=== PATIENT | female | born 1945 | race Caucasian/White ===

== ENCOUNTER 2020-11-11 08:41 | Outpatient (RCR) | payer MEDICARE, SELFPAY | END 2020-11-11 23:59 | LOC: IMMUN 08:41 | PROVIDERS: PCP Family Medicine; Visit Provider Family Medicine | DX: Z23 Encounter for immunization (principal) | CPT/HCPCS: 0011A; 0012A ==

== ENCOUNTER 2020-11-15 19:28 | Inpatient (IN) | payer MEDICARE, SELFPAY ==
[2020-11-15 19:29] VITALS: BP 163/88; PULSE 120; RESP 18; TEMP 36.1; O2SAT 94; BMI 33.6
--- NOTE | 2020-11-15 19:41 | EKG12_ITS ---
Test Reason : DYSRYTHMIA Blood Pressure : / mmHG Vent. Rate : 098 BPM Atrial Rate : 098 BPM P-R Int : 140 ms QRS Dur : 060 ms QT Int : 334 ms P-R-T Axes : 062 035 056 degrees QTc Int : 426 ms Normal sinus rhythm Possible Left atrial enlargement Borderline ECG Confirmed by VIDAL MAX, SU ([id number]), continuity editor JENNY AUGUSTINE ([id number]) on 11/17/2020 10:37:20 AM Referred By: SHILPI Confirmed By:SU DRAKE MD
--- NOTE | 2020-11-15 19:42 | ED.VISSUMM ---
- ER Visit Summary Date of Service: 11/15/20 Chief Complaint: Vomiting History of Present Illness: The patient is a 75 F presenting with nausea, vomiting. Patient states this started 2 days ago. She states she is unable to keep fluids or medications down. She went to urgent care yesterday and was given Zofran. She denies diarrhea. She denies abdominal pain, chest pain, shortness of breath. Denies fever. She had Moderna Covid shot on Monday. This was her first Covid shot. Denies sick contacts. Physical Examination: Vitals are stable. Patient is afebrile. Alert no acute distress. HEENT exam dry mucous membranes Neck is supple. Lungs are clear and equal bilaterally. Heart is regular tachycardic Abdomen is soft nontender nondistended. No guarding or rebound Extremities are unremarkable. Skin is warm and dry. No focal neurologic deficit. Remainder of exam is unremarkable. Emergency Department Course and Treatment: Patient was given IV fluids, Zofran. EKG is sinus rhythm rate of 98, similar to previous. CBC shows white count 14.5. Chemistries show sodium 123, glucose 134, BUN 39, creatinine 2.67. On review of old records from [facility], her previous creatinine was 0.February. Troponin is negative. Lipase is normal. On repeat exam she continues to have no abdominal tenderness. She continues to have nausea and vomiting in the emergency department. Will discuss with hospitalist for admission. Disposition: Admission Impression: Vomiting, JORDYN This note was generated with [employer] dictation software. It may contain incorrect words, spelling, and punctuation that were not noted in review of the chart prior to signing ED Disposition - Plan for ED Patient:
[2020-11-15] MEDS: Ondansetron 4 MG/2 ML Vial IV (19:49)
[2020-11-15] MEDS: 0.9% Normal Saline 1,000 ML 1000 ML IV (19:49)
[2020-11-15 20:02] LABS: Absolute Lymphocyte Count 1.93 X10^3/uL (0.83-4.51); Absolute Neutrophil Count 11.8 X10^3/uL (2.0-7.7); Basophil# 0.02 X10^3/uL; Basophil% 0.1 % (0-1); Eosinophil# 0.02 X10^3/uL; Eosinophils% 0.1 % (0-5); Hematocrit 45.9 % (37-47); Hemoglobin 15.8 g/dL (12.0-15.0); Lymphocyte # 1.93 X10^3/ul (4.0); Lymphocyte % 13.3 % (19-41); Mean Corp Hgb Conc 34.4 g/dL (32-36); Mean Corpuscular Hgb 31.3 pg (27.0-32.0); Mean Corpuscular Volume 90.9 fL (81-99); Mean Platelet Vol. 8.8 fl (6.2-12.0); Monocyte# 0.67 X10^3/uL; Monocyte% 4.6 % (0-10); NRBC Flagged by Analyzer 0 % (0-5); Neutrophil # 11.81 X10^3/uL (2.7-7.7); Neutrophil % 81.5 % (47-70); Platelet Count 400 K/mm3 (150-450); RBC Distribution Width CV 13.2 % (11.6-14.6); RBC Distribution Width SD 43.6 fl (35.1-43.9); Red Blood Count 5.05 M/mm3 (4.2-5.4); White Blood Count 14.5 K/mm3 (4.4-11.0)
[2020-11-15 20:17] LABS: ALB/GLOB Ratio 0.9 RATIO (0.9-2.4); AST(SGOT) 14 U/L (15-37); Alanine Aminotransfer ALT/SGPT 22 U/L (13-56); Albumin, Serum 3.9 g/dL (3.2-5.0); Alkaline Phosphatase 81 U/L (45-117); Anion Gap 15 (5-15); BUN 39 mg/dL (7-18); BUN/Creat Ratio 14.6 RATIO (10-20); Chloride 79 mmol/L (98-107); Creatinine, Serum 2.67 mg/dL (0.55-1.02); EST Glomerular Filtration Rate 18 mL/min (>60); Est Glom Filt Rate - Afr Amer 22 mL/min (>60); Estimated Creatinine Clearance 17.16 ml/min; Globulin 4.2 g/dL (2.2-4.2); Glucose 154 mg/dL (74-106); Lipase 136 U/L (73-393); Potassium 4.1 mmol/L (3.5-5.1); Protein, Total 8.1 g/dL (6.4-8.2); Sodium Level 123 mmol/L (136-145)
--- NOTE | 2020-11-15 20:41 | PCM.HP.STD ---
Problem List (1) Intractable nausea and vomiting Status: Acute (2) JORDYN (acute kidney injury) Status: Acute (3) Hyponatremia Status: Acute (4) HLD (hyperlipidemia) Status: Chronic Qualifiers: Hyperlipidemia type: unspecified Qualified Code(s): E78.5 - Hyperlipidemia, unspecified (5) Essential hypertension Status: Chronic (6) Type II diabetes mellitus Status: Chronic Qualifiers: Diabetes mellitus rn long term care insulin use: without assisted use Diabetes mellitus complication status: with other specified complication Qualified Code(s): E11.69 - Type 2 diabetes mellitus with other specified complication History of Present Illness Date of Admission: 11/15/20 Chief Complaint: Nausea, emesis, recent Moderna The patient is a 75 y/o F w/ PMHx: HTN, HLD, Diabetes mellitus type II, Obesity who presents to the [facility] ED on 11/15/20 with history of recent 1st Moderna vaccination this past Monday with onset intractable nausea, emesis, poor oral intake with fatigue and malaise as well as debility starting late night/early Monday AM prompting urgent care visit the day prior to current presentation with Jaycee upon discharge however it was not ODT and she is been unable to keep down prompting eventual ED visitation. She denied having had COVID illness. She denies any associated fever, chills, abdominal pain, diarrhea. She has had no recent ill contacts.Work-up in the ED included T 96.9 temporally, heart rate 120, BP 163/88, respiratory rate 18, 94% room air, CBC with WC 14.5, hemoglobin 15.8, platelet 400 with left shift, CMP with sodium 123, chloride 79, BUN/creatinine 39/2.67, Kos 154, total bili 1.80, AST/LT 14/22, troponin less than 0.015, lipase 136 otherwise unremarkable hepatic profile, EKG with sinus tachycardia without acute evidence of ischemia. PCP outpatient 02/2020 labs included CMP with creatinine noted to be 0.78, sodium 134 at that time, glucose 112 otherwise not marked appearing. Past Medical History Past Medical History (Chronic Problems): Chronic Problems HLD (hyperlipidemia) (Chronic) Essential hypertension (Chronic) Type II diabetes mellitus (Chronic) CVD (cerebrovascular disease) (Chronic) Allergies No Known Allergies Allergy (Verified 11/15/20 19:31) Home Medications: Ambulatory Orders Medication Instructions Recorded Aspirin 325 mg PO DAILY 11/15/20 Atorvastatin Calcium [Lipitor] 20 mg PO QHS 11/15/20 Hydrochlorothiazide 12.5 mg PO DAILY 11/15/20 Lisinopril 40 mg PO DAILY 11/15/20 Metformin HCl 500 mg PO BID 11/15/20 Surgical History: - - L breast cyst removal. Psychiatric History: No pertinent psych hx [employer] History: No pertinent [employer] history Lives: Spouse/ Significant Other Smoking Status: Never smoker Tobacco Use: Non-smoker Alcohol: Occasional Drugs: None - *Family History Maternal History Items: Cancer - History of breast CA., Pulmonary Disease - Mother with history of COPD, non-smoker, 2nd hand exposure. Paternal History Items: Heart Disease Review of Systems Constitutional: Reports: Anorexia, Malaise, Weakness, Fatigue. Denies: Chills, Fever, Weight Change HEENT: Denies: Head Aches, Sinus Congestion, Sinus Drainage Cardiovascular: Denies: Chest Pain, Palpitations Respiratory: Denies: Cough, Shortness of breath at rest, Sputum production Gastrointestinal: Reports: Nausea, Vomiting. Denies: Abdominal Pain, Diarrhea Genitourinary: Denies: Dysuria Musculoskeletal: Denies: Joint Pain, Joint Tenderness, Muscle pain Skin: Denies: Rash, Wounds Neurological: Denies: Numbness, Tingling, Focal weakness Psychiatric: Denies: Anxiety, Depression, Homicidal Ideations, Suicidal Ideations Hematologic/ Lymphatic: Denies: Easy Bruising, Easy Bleeding VTE Information - Inpt Only VTE Present on Admission: No VTE Mechan Device Prophylaxis: SCD's VTE Pharm Prophylaxis ordered?: Yes Patient Problems: Active and Suspected Problems Intractable nausea and vomiting (Acute) JORDYN (acute kidney injury) (Acute) Hyponatremia (Acute) Subjective: Seated upright in the ED bed, fatigued, notes less nausea current with recent ED medications; however, still had recent emesis in the ED. Objective: Physical Examination: General: awake, alert, oriented x 3 and cooperative, seated upright in the ED bed, fatigued and ill appearing. Skin: normal color, turgor, no icterus, cyanosis. HEENT: AT/NC, EOMI, PERRLA, dry MM, no carotid bruits or JVD noted. Lungs: Diminished BS BL, > bases, decreased effort, no rales, ronchi or wheezing. Heart: Tachycardic with regular rhythm; no gallop, rub audible. Abdomen: soft, NTTP, ND, normal BS, no HSM. Extremities: no cyanosis, clubbing, or edema. Neurological: patient awake, alert, oriented as noted; cognitive function intact; pupils equally reactive to light and accomodation; cranial nerves II-XII grossly normal, moving all 4 extremities, no focal deficits, strength moderately globally decreased secondary to acute presentation. Psychiatric: affect appears fatigued, ill appearing, no acute evidence of depressive or anxiety feelings. - Physical Exam Vitals/I&O's: Vital Signs Temp Pulse Resp BP Pulse Ox 96.9 F L 120 H 18 163/88 H 94 11/15/20 19:29 11/15/20 19:29 11/15/20 19:29 11/15/20 19:29 11/15/20 19:29 Oxygen Delivery Method Room Air Weight: 215 lb Body Mass Index (BMI) 33.6 Laboratory Results 11/15/20 19:45: WBC 14.5 H, RBC 5.05, Hgb 15.8 H, Hct 45.9, MCV 90.9, MCH 31.3, MCHC 34.4, RDW Std Deviation 43.6, RDW Coeff of Aaron 13.2, Plt Count 400, MPV 8.8, Immature Gran % (Auto) 0.400, Neut % (Auto) 81.5 H, Lymph % (Auto) 13.3 L, [place] % (Auto) 4.6, Eos % (Auto) 0.1, Baso % (Auto) 0.1, Absolute Neuts (auto) 11.8 H, Absolute Lymphs (auto) 1.93, Nucleated RBC % 0 11/15/20 19:45: Sodium 123 L, Potassium 4.1, Chloride 79 L, Carbon Dioxide 29.0, Anion Gap 15, BUN 39 H, Creatinine 2.67 H, Estim Creat Clear Calc 17.16, Est GFR (MDRD) Af Amer 22 L, Est GFR (MDRD) Non-Af 18 L, BUN/Creatinine Ratio 14.6, Glucose 154 H, Calcium 10.0, Total Bilirubin 1.80 H, AST 14 L, ALT 22, Alkaline Phosphatase 81, Troponin I < 0.015, Total Protein 8.1, Albumin 3.9, Globulin 4.2, Albumin/Globulin Ratio 0.9, Lipase 136 Assessment/Plan All Active Problems Intractable nausea and vomiting (Acute) JORDYN (acute kidney injury) (Acute) Hyponatremia (Acute) The patient is a 75 y/o F w/ PMHx: HTN, HLD, Diabetes mellitus type II, Obesity who presents to the [facility] ED on 11/15/20 with history of recent 1st Moderna vaccination this past Monday with onset intractable nausea, emesis, poor oral intake with fatigue and malaise as well as debility starting late pm/early Monday am. 1. Intractable nausea and vomiting, possible vaccine side effect versus gastroenteritis: We will admit to medical surgical floor, continue aggressive hydration, if onset any concurrent diarrhea would obtain stool culture and C. difficile, no abdominal pain therefore will defer any CT abdomen pelvis but if onset would pursue, allow clear liquids if patient able, as needed antiemetic options, IV PPI. 2. Acute hypovolemic hyponatremia: Admission sodium 123, chloride is 79, significant GI losses with nausea, emesis and inability to maintain oral intake, will continue to judiciously hydrate, repeat CMP in AM. 3. Acute kidney injury: Secondary to acute presentation as noted with GI losses. Admission BUN/Cr 39/2.67, prior baseline creatinine noted to be 0.78 02/2020. Will hydrate, hold nephrotoxic medications and repeat chemistry in AM. If no improvement would plan FeNa assessment. 4. Leukocytosis, likely secondary to significant dehydration: Admission CBC with WC 14.5 with left shift, will continue treatment with aggressive hydration, repeat CBC in AM. 5. Hypertension: Given acute kidney injury will hold patient lisinopril and hydrochlorothiazide, resume once appropriate, as needed IV hydralazine in interim. 6. Hyperlipidemia: We will temporarily hold patient statin given intractable nausea and emesis, once oral intake improves reinitiate. 7. Diabetes mellitus type II: Hold oral home regimen, currently with intractable nausea and emesis, allow clears if able, given inability to have adequate intake currently will transition to every 6 hour accu checks w/ ISS but once oral intake established transition to AC at bedtime. 8. DVT prophylaxis: SCDs, heparin. Inpatient E&M: 23722 Init Hosp L3
[2020-11-15 21:20] VITALS: BP 163/88; PULSE 100; RESP 18; TEMP 36.6; O2SAT 94
[2020-11-15 21:36] VITALS: BP 129/68; PULSE 102; RESP 18; TEMP 37; O2SAT 93; BMI 34.9
[2020-11-15 21:41] VITALS: BMI 35.0
[2020-11-15 21:56] LABS: Magnesium 1.2 mg/dL (1.6-2.6)
[2020-11-15 22:23] VITALS: O2SAT 94
[2020-11-15] MEDS: 0.9% Normal Saline 1,000 ML 999 ML IV (22:32)
[2020-11-15] MEDS: Heparin Injection (Vial) 5,000 UNIT/ML VIAL 5000 UNIT SC (23:01)
[2020-11-15] MEDS: 0.9% Normal Saline 1,000 ML 125 ML IV (23:33)
[2020-11-15 23:40] LABS: Bedside Glucose 139 mg/dL (70-110)
[2020-11-15] MEDS: Magnesium Sulfate 4gm/100mL 4 GM/100 ML IV.SOLN. IV (23:52)
[2020-11-16 02:21] LABS: Mucous, Urine 0 SEEN /hpf (<or=2+)
[2020-11-16 02:28] LABS: Color, Urine Yellow (Yellow); Glucose, Dipstick Normal (Normal); Ketone-Dipstick 15 mg/dl (Negative); Leukocyte Esterase-Dipstick 500 /ul (Negative); Nitrite-Dipstick Negative (Negative); Occult Blood-Urine 50 /ul (Negative); Protein-Dipstick 30 mg/dl (Negative); Specific Gravity, Urine 1.025 (1.002-1.030); Urine Bilirubin Dipstick Negative (Negative); Urine Clarity Cloudy (Clear); Urine Urobilinogen Normal (Normal)
[2020-11-16 02:34] LABS: Bacteria 1+ /hpf (None Seen); Red Blood Cells-Urine 10-25 SEEN /hpf (0-5); Squamous Epithelial Cells - UA 0-5 SEEN /hpf (5-10); Transitional Epithelial - Ur 0-5 SEEN /hpf (0-5); White Blood Cells 25-50 SEEN /hpf (0-5)
[2020-11-16 06:10] VITALS: BP 155/67; PULSE 89; RESP 17; TEMP 37.1; O2SAT 93
[2020-11-16] MEDS: 0.9% Normal Saline 1,000 ML 125 ML IV ×2 (06:22→14:46)
[2020-11-16 06:23] LABS: Absolute Lymphocyte Count 1.35 X10^3/uL (0.83-4.51); Absolute Neutrophil Count 8.8 X10^3/uL (2.0-7.7); Basophil# 0.02 X10^3/uL; Basophil% 0.2 % (0-1); Eosinophil# 0.02 X10^3/uL; Eosinophils% 0.2 % (0-5); Hematocrit 41.1 % (37-47); Hemoglobin 13.8 g/dL (12.0-15.0); Lymphocyte # 1.35 X10^3/ul (4.0); Lymphocyte % 12.6 % (19-41); Mean Corp Hgb Conc 33.6 g/dL (32-36); Mean Corpuscular Hgb 30.9 pg (27.0-32.0); Mean Corpuscular Volume 91.9 fL (81-99); Mean Platelet Vol. 8.6 fl (6.2-12.0); Monocyte# 0.51 X10^3/uL; Monocyte% 4.8 % (0-10); NRBC Flagged by Analyzer 0 % (0-5); Neutrophil # 8.78 X10^3/uL (2.7-7.7); Neutrophil % 81.7 % (47-70); Platelet Count 311 K/mm3 (150-450); RBC Distribution Width SD 43.8 fl (35.1-43.9); Red Blood Count 4.47 M/mm3 (4.2-5.4); White Blood Count 10.7 K/mm3 (4.4-11.0)
[2020-11-16 06:31] LABS: Bedside Glucose 135 mg/dL (70-110)
[2020-11-16 06:54] LABS: ALB/GLOB Ratio 0.9 RATIO (0.9-2.4); AST(SGOT) 12 U/L (15-37); Alanine Aminotransfer ALT/SGPT 16 U/L (13-56); Albumin, Serum 3.2 g/dL (3.2-5.0); Alkaline Phosphatase 67 U/L (45-117); Anion Gap 8 (5-15); BUN 38 mg/dL (7-18); BUN/Creat Ratio 20.9 RATIO (10-20); Calcium,Total 8.3 mg/dL (8.5-10.1); Chloride 88 mmol/L (98-107); Creatinine, Serum 1.82 mg/dL (0.55-1.02); EST Glomerular Filtration Rate 29 mL/min (>60); Est Glom Filt Rate - Afr Amer 35 mL/min (>60); Estimated Creatinine Clearance 25.17 ml/min; Globulin 3.6 g/dL (2.2-4.2); Glucose 129 mg/dL (74-106); Magnesium 3.1 mg/dL (1.6-2.6); Potassium 3.9 mmol/L (3.5-5.1); Protein, Total 6.8 g/dL (6.4-8.2); Sodium Level 126 mmol/L (136-145)
[2020-11-16 08:11] VITALS: BP 162/75; PULSE 81; RESP 16; TEMP 37.2; O2SAT 95
[2020-11-16] MEDS: Heparin Injection (Vial) 5,000 UNIT/ML VIAL 5000 UNIT SC (10:05)
--- NOTE | 2020-11-16 10:16 | DCINST_ITS ---
- Discharge Diagnoses Current Active Problems: Current Active and Chronic Problems Intractable nausea and vomiting (Acute) JORDYN (acute kidney injury) (Acute) Hyponatremia (Acute) HLD (hyperlipidemia) (Chronic) Essential hypertension (Chronic) Type II diabetes mellitus (Chronic) You will use the following diet at home:: Calorie/Carbohydrate Controlled (specify 1200, 1400, etc) Your food should be the consistency of: Regular Your liquids should be the consistency of: Regular/Thin Discharge Activity: Return to Normal Activity Call your doctor if you observe: Fever of 101 or Higher, Shortness of breath, Dizziness, Fainting spells, Swelling in the ankles, Chest pain, Increased palpitations (irregular heartbeat) Instructions: Acute Kidney Failure Additional Instructions: Obtain a BMP by your PCP to evaluate your renal function. Allergies/Adverse Reactions: Allergies No Known Allergies Allergy (Verified 11/15/20 19:31) Medications to take at Discharge Aspirin 325 mg PO DAILY 11/15/20 Atorvastatin Calcium [Lipitor] 20 mg PO QHS 11/15/20 Hydrochlorothiazide 12.5 mg PO DAILY #0 11/16/20 Lisinopril 40 mg PO DAILY #0 11/16/20 Metformin HCl 500 mg PO BID #0 11/16/20 Primary Care Physician: Juve Hoyos III, MD [Primary Care Provider] - Please follow up with your Primary Care Physician in: 3-5 days Test Results: Test results from this visit will be discussed in further detail at your follow- up appointment, if applicable.
--- NOTE | 2020-11-16 11:00 | CASEMGMT ---
ANTWON MENDOZA Face to Face with patient for initial transition planning/care coordination assessment. RN CM introduced self and role at [facility]. Patient lying in bed, alert and oriented, daughter at bedside. Patient willing to participate in assessment and is able to answer all questions appropriately. Care providers, pharmacy, and demographics verified. Patient wishes to discharge home, denies need for home health at this time. Patient states she has no further needs or concerns at this time. CM to follow for discharge planning needs that may arise. PCP: Romain Specialists: none Preferred Pharmacy: [facility] Insurance: [employer] [facility] Prescription Benefit: yes Living Will/HPOA: yes, daughter Kim Larry LNOK: daughter Living Arrangements: Patient lives alone in a single story home with 2 steps and railing to enter the home. Patient states she is independent at home. Patient states daughter will be staying with patient for a couple days. Transportation: Daughter DME/HHC: Patient states she has shower chair, BSC, cane, walker, grab bars, and wheelchair at home. Patient denies previous HHC or SNF Disposition Plan: Patient to discharge home with family support and follow-up plans in place. Keren WILLIAMSON, RN, CM
[2020-11-16 11:05] LABS: Bedside Glucose 130 mg/dL (70-110)
--- NOTE | 2020-11-16 12:44 | NURSING ---
pt only jayleen few bites of lunch, ordered chicken noodle soup to see how pt jayleen diet.
[2020-11-16] MEDS: Ondansetron 4 MG/2 ML Vial IV (13:52)
[2020-11-16 14:13] VITALS: BP 176/72; PULSE 79; RESP 16; TEMP 37; O2SAT 95
--- NOTE | 2020-11-16 15:04 | PHA.DC.MR ---
Pharmacy Service has performed discharge medication reconciliation for this patient. No new medications at time of discharge medication review. medications reviewed are from previously reported home medications. Home Medications Aspirin 325 mg PO DAILY 11/15/20 Atorvastatin Calcium [Lipitor] 20 mg PO QHS 11/15/20 Hydrochlorothiazide 12.5 mg PO DAILY #0 11/16/20 Lisinopril 40 mg PO DAILY #0 11/16/20 Metformin HCl 500 mg PO BID #0 11/16/20 The patient's discharge medication list was reviewed for discrepancies and discrepancies were resolved.
--- NOTE | 2020-11-16 16:06 | DS.PCM_ITS ---
Discharge Date and Diagnosis - Problem List Patient Problems: Active and Suspected Problems Intractable nausea and vomiting (Acute) JORDYN (acute kidney injury) (Acute) Hyponatremia (Acute) Date of Admission: 11/15/20 Date of Discharge: 11/16/20 - Primary Discharge Diagnosis Acute Problems: Active Problems Intractable nausea and vomiting (Acute) JORDYN (acute kidney injury) (Acute) Hyponatremia (Acute) - Secondary Discharge Diagnosis Chronic Problems: Chronic Problems HLD (hyperlipidemia) (Chronic) Essential hypertension (Chronic) Type II diabetes mellitus (Chronic) CVD (cerebrovascular disease) (Chronic) Hospital Course and Treatment Operations: None Procedures: None Summary of Care Provided: Per HPI: The patient is a 75 y/o F w/ PMHx: HTN, HLD, Diabetes mellitus type II, Obesity who presents to the [facility] ED on 11/15/20 with history of recent 1st Moderna vaccination this past Monday with onset intractable nausea, emesis, poor oral intake with fatigue and malaise as well as debility starting late night/early Monday AM prompting urgent care visit the day prior to current presentation with Jaycee upon discharge however it was not ODT and she is been unable to keep down prompting eventual ED visitation. She denied having had COVID illness. She denies any associated fever, chills, abdominal pain, diarrhea. She has had no recent ill contacts.Work-up in the ED included T 96.9 temporally, heart rate 120, BP 163/88, respiratory rate 18, 94% room air, CBC with WC 14.5, hemoglobin 15.8, platelet 400 with left shift, CMP with sodium 123, chloride 79, BUN/creatinine 39/2.67, Kos 154, total bili 1.80, AST/LT 14/22, troponin less than 0.015, lipase 136 otherwise unremarkable hepatic profile, EKG with sinus tachycardia without acute evidence of ischemia. PCP outpatient 02/2020 labs included CMP with creatinine noted to be 0.78, sodium 134 at that time, glucose 112 otherwise not marked appearing. Hospital Course: 1. Acute nausea and vomiting secondary to vaccine side effect versus viral gastroenteritis with acute hypovolemic hyponatremia and [id number]-old female who got her first Covid vaccine shot on Monday and on evening developed nausea and vomiting. She denies any diarrhea at this time, but was admitted because her creatinine was 2.67 we did not have a baseline to compare. Today on discharge her creatinine was 1.82. Her sodium has increased from 123 to 126. She is she is tolerating liquids very well and was able to have a few bites of lunch without any significant nausea or GI upset. I discussed with her the possible discharge today since she is tolerating p.o. intake, she would like to go home. I discussed the risks and benefits with her and her daughter and they both expressed understanding. I discussed with him to hold the hydrochlorothiazide and the lisinopril until Monday and that she needs outpatient follow-up with a BMP to monitor her renal function. I discussed with her that she can restart her Metformin once she starts taking adequate p.o. intake. UA with 500 leukocyte esterase as well as 1+ urine bacteria and 25-50 WBCs, she is asymptomatic but will obtain a culture, her leukocytosis has resolved with IV fluids going from 14.5 on admission down to 10.7 today. 2. Hypertension, hyperlipidemia, type 2 diabetes are all chronic medical conditions which complicate her care. Her home medications were continued where appropriate Patient Problems: Active and Suspected Problems Intractable nausea and vomiting (Acute) JORDYN (acute kidney injury) (Acute) Hyponatremia (Acute) - Physical Exam Vitals/I&O's: Vital Signs Temp Pulse Resp BP Pulse Ox 98.6 F 79 16 176/72 H 95 11/16/20 14:13 11/16/20 14:13 11/16/20 14:13 11/16/20 14:13 11/16/20 14:13 Oxygen Delivery Method Room Air Weight: 222 lb 6.4 oz Body Mass Index (BMI) 34.9 Intake and Output for Last 24 Hours 11/14/20 11/15/20 11/16/20 23:59 23:59 23:59 Intake Total 2110.25 / 2260.25 3794.33 / 3794.33 Output Total 400 / 400 Balance 2111.25 / 2260.25 3394.33 / 3394.33 General: Alert, Oriented x3, Cooperative, No apparent distress HEENT: Atraumatic, PERRLA, EOMI, Normocephalic Oral: Moist Mucosa Neck: Supple, No JVD Lungs: Clear to auscultation, Normal air movement, No rhonchi, No wheeze, No rales Cardiovascular: Regular rate, Regular Rhythm, Normal S1, Normal S2, No murmurs Abdomen: Soft, Non Tender, Non-Distended, No Hepato-splenomegaly Extremities: No edema, Capillary Refill Less than 3 Seconds Skin: No rashes, No breakdown Neurological: Neuro grossly intact, Sensory exam intact to light touch and pain Psych/Mental Status: Normal Affect, Appropriate Laboratory Results 11/15/20 19:45: WBC 14.5 H, RBC 5.05, Hgb 15.8 H, Hct 45.9, MCV 90.9, MCH 31.3, MCHC 34.4, RDW Std Deviation 43.6, RDW Coeff of Aaron 13.2, Plt Count 400, MPV 8.8, Immature Gran % (Auto) 0.400, Neut % (Auto) 81.5 H, Lymph % (Auto) 13.3 L, [place] % (Auto) 4.6, Eos % (Auto) 0.1, Baso % (Auto) 0.1, Absolute Neuts (auto) 11.8 H, Absolute Lymphs (auto) 1.93, Nucleated RBC % 0 11/15/20 19:45: Sodium 123 L, Potassium 4.1, Chloride 79 L, Carbon Dioxide 29.0, Anion Gap 15, BUN 39 H, Creatinine 2.67 H, Estim Creat Clear Calc 17.16, Est GFR (MDRD) Af Amer 22 L, Est GFR (MDRD) Non-Af 18 L, BUN/Creatinine Ratio 14.6, Glucose 154 H, Calcium 10.0, Total Bilirubin 1.80 H, AST 14 L, ALT 22, Alkaline Phosphatase 81, Troponin I < 0.015, Total Protein 8.1, Albumin 3.9, Globulin 4.2, Albumin/Globulin Ratio 0.9, Lipase 136 11/15/20 19:45: Magnesium 1.2 L 11/15/20 23:04: POC Glucose 139 H 11/16/20 02:15: Urine Color Yellow, Urine Clarity Cloudy, Urine pH 5.0, Ur Specific [place] 1.025, Urine Protein 30 H, Urine Glucose (UA) Normal, Urine Ketones 15 H, Urine Occult Blood 50 H, Urine Nitrite Negative, Urine Bilirubin Negative, Urine Urobilinogen Normal, Ur Leukocyte Esterase 500 H, Urine RBC 10- 25 SEEN, Urine WBC 25-50 SEEN, Ur Squamous Epith Cells 0-5 SEEN, Ur Transition Epith Cell 0-5 SEEN, Urine Bacteria 1+, Urine Mucus 0 SEEN 11/16/20 05:50: WBC 10.7, RBC 4.47, Hgb 13.8, Hct 41.1, MCV 91.9, MCH 30.9, MCHC 33.6, RDW Std Deviation 43.8, RDW Coeff of Aaron 13.0, Plt Count 311, MPV 8.6, Immature Gran % (Auto) 0.500, Neut % (Auto) 81.7 H, Lymph % (Auto) 12.6 L, [place] % (Auto) 4.8, Eos % (Auto) 0.2, Baso % (Auto) 0.2, Absolute Neuts (auto) 8.8 H, Absolute Lymphs (auto) 1.35, Nucleated RBC % 0 11/16/20 05:50: Sodium 126 L, Potassium 3.9, Chloride 88 L, Carbon Dioxide 30.0, Anion Gap 8, BUN 38 H, Creatinine 1.82 H, Estim Creat Clear Calc 25.17, Est GFR (MDRD) Af Amer 35 L, Est GFR (MDRD) Non-Af 29 L, BUN/Creatinine Ratio 20.9 H, Glucose 129 H, Calcium 8.3 L, Magnesium 3.1 H, Total Bilirubin 1.60 H, AST 12 L, ALT 16, Alkaline Phosphatase 67, Total Protein 6.8, Albumin 3.2, Globulin 3.6, Albumin/Globulin Ratio 0.9 11/16/20 06:21: POC Glucose 135 H 11/16/20 11:00: POC Glucose 130 H Discharge Activity: Return to Normal Activity Call your doctor if you observe: Fever of 101 or Higher, Shortness of breath, Dizziness, Fainting spells, Swelling in the ankles, Chest pain, Increased palpitations (irregular heartbeat) Home Medications: Medications to take at Discharge Aspirin 325 mg PO DAILY 11/15/20 Atorvastatin Calcium [Lipitor] 20 mg PO QHS 11/15/20 Hydrochlorothiazide 12.5 mg PO DAILY #0 11/16/20 Lisinopril 40 mg PO DAILY #0 11/16/20 Metformin HCl 500 mg PO BID #0 11/16/20 Primary Care Physician: Juve Hoyos III, MD [Primary Care Provider] - Please follow up with your Primary Care Physician in: 3-5 days Patient Instructions: Acute Kidney Failure Disposition: Home Minutes spent on discharge:: 35 Patient Condition:: Stable Medical Necessity - Tobacco Use Smoking Status: Never smoker Tobacco Use: Non-smoker Meaningful Use Info Meaningful Use Diagnoses (Choose all that apply): None applicable Inpatient E&M: 23707 Disch Hosp
== END 2020-11-16 15:24 | disposition home or self-care (01) | DRG 392 ==
LOC: ED 20:27 → MS3 20:57
PROVIDERS: Admitting Provider Family Medicine; Emergency Provider Emergency Medicine; PCP Family Medicine; Visit Provider Family Medicine
DX: R11.2 Nausea with vomiting, unspecified (principal); N17.9 Acute kidney failure, unspecified; E87.1 Hypo-osmolality and hyponatremia; E86.1 Hypovolemia; T50.B95A Adverse effect of other viral vaccines, initial encounter; A08.4 Viral intestinal infection, unspecified; E86.0 Dehydration; E78.5 Hyperlipidemia, unspecified; I67.9 Cerebrovascular disease, unspecified; I10 Essential (primary) hypertension; E11.9 Type 2 diabetes mellitus without complications; E66.9 Obesity, unspecified; Z68.33 Body mass index [BMI] 33.0-33.9, adult; Z79.84 Long term (current) use of oral hypoglycemic drugs; Z79.82 Long term (current) use of aspirin; Z79.899 Other long term (current) drug therapy
CPT/HCPCS: 80053; 81001; 82962; 83690; 83735; 84484; 85025; 93005; 99251; 99284; J7030; J7050; A4216; G0463; J2405

== ENCOUNTER 2022-08-15 15:14 | Emergency (ER) | payer MEDICARE, SELFPAY ==
[2022-08-15 15:16] VITALS: BP 160/99; PULSE 92; RESP 14; TEMP 36.6; O2SAT 95; BMI 34.1
[2022-08-15] MEDS: Silver Nitrate (BKC) 4 EACH TOPICAL (15:46)
[2022-08-15] MEDS: Mixture 30 ML Bottle 10 ML TOPICAL (15:46)
--- NOTE | 2022-08-15 16:14 | EX.ED.DYSGE1 ---
HPI History of Present Illness Chief Complaint: Nosebleed Detail of Chief Complaint: Epistaxis left naris earlier this morning Informant: patient Onset/Context/Timing Onset: Hours Context: Sudden Onset Timing: Intermittent Quality: Bright red blood from the left side Location: Left naris Maximum Severity: Moderate Worsened by: Nothing Relieved by: Nothing Associated Symptoms Associated Symptoms: Nothing Narrative Narrative: Patient is a 76-year-old woman with history of hypertension, type 2 diabetes on a baby aspirin daily who presents with spontaneous epistaxis that started at approximately 06 100 and stopped after 30 minutes. When she sat down to use her computer she began to bleed. She states it did stop on its own. There is no history of trauma. She has had no prior problems with nosebleed. She states the blood came anteriorly. She denies cardiac respiratory symptoms. Prior similar symptoms: No Recent Illness/Hospitalization: No PFSH PFSH Medical History no medical history no medical history Home Medications aspirin 325 mg tablet 81 mg PO DAILY 11/15/20 [History Last Taken Unknown] atorvastatin 20 mg tablet 20 mg PO QHS 11/15/20 [History Last Taken Unknown] Hydrochlorothiazide 12.5 mg PO DAILY ##0 11/16/20 [Rx Last Taken Unknown] lisinopril 40 mg tablet 40 mg PO DAILY ##0 11/16/20 [Rx Last Taken Unknown] metformin 500 mg tablet 500 mg PO BID ##0 11/16/20 [Rx Last Taken Unknown] Allergy/AdvReac Type Severity Reaction Status Date / Time No Known Allergies Allergy Verified 08/15/22 15:15 Surgical History no surgical history no surgical history Social History (Updated 08/15/22 @ 16:[address] Fantasma Meeks MD) household members: none Smoking Status: Never smoker substance use type: does not use ROS ROS ED Constitutional Constitutional ED: Denies chills, fever(s), subjective, sweats or weight loss Eyes Eyes: Denies blurry vision, change in vision or diplopia ENT ENT ED: Reports other Details: Per HPI narrative ; Denies ear pain, rhinorrhea or sore throat Cardiovascular Cardiovascular: Denies chest pain or palpitations Hematologic/Lymphatic Hematologic/Lymphatic: Reports systems reviewed and no addt'l complaints, except as documented and none EXAM Physical Exam Const Vital Signs: 08/15/22 15:16 Temperature 97.9 F Temperature Source Temporal Pulse Rate 92 Respiratory Rate 14 Blood Pressure 160/99 H Blood Pressure Mean 119 Pulse Ox 95 Oxygen Delivery Method Room Air Positive well nourished, well developed and obese General Appearance ED: well developed; Negative for pallor Nutritional Appearance: obese HEENT Reports moist mucous membranes HEENT Narrative: Nares patent. Blood noted over left Mathew box plexus. There is no active bleeding. Head is atraumatic no cephalic. Ears normal. Posterior pharynx without blood. Uvula midline. No deviation with protrusion. 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 Will anesthetize nose and cauterize area. Procedures Other Procedures Procedure(s): Left naris was anesthetized with Pb solution. Using silver nitrate sticks the area of bleeding was cauterized. There was no active bleeding after cauterization. Patient discharged to home with appropriate hunger instructions and follow-up with ENT. Discharge Plan Triage Chief Complaint: Nosebleed ED Provider: Fantasma Meeks Dx/Rx/DC Orders Clinical Impression: Acute anterior epistaxis, Type II diabetes mellitus, Essential hypertension, HLD (hyperlipidemia) Instructions: ED Epistaxis (Adult) Prescriptions: No Action atorvastatin 20 MG tablet 20 mg PO QHS aspirin 325 MG tablet 81 mg PO DAILY metformin 500 MG tablet 500 mg PO BID Qty: 0 0RF Rx Instructions: Restart 11/18/20 lisinopril 40 MG tablet 40 mg PO DAILY Qty: 0 0RF Rx Instructions: Restart 11/18/20 Hydrochlorothiazide 12.5 MG capsule 12.5 mg PO DAILY Qty: 0 0RF Rx Instructions: Restart on 11/18/20 Primary Care Provider: Jose D Faria Referrals: Kraig Castellanos MD [Med Staff - Active Staff] - 3-5 Days if not improving Jose D Faria MD [Primary Care Provider] - Disposition Disposition: Home, Self Care
== END 2022-08-15 17:16 | disposition home or self-care (01) ==
PROVIDERS: Emergency Provider Emergency Medicine; PCP Family Medicine; Visit Provider Emergency Medicine
DX: R04.0 Epistaxis (principal); E11.9 Type 2 diabetes mellitus without complications; I10 Essential (primary) hypertension; E78.5 Hyperlipidemia, unspecified; E66.9 Obesity, unspecified; Z79.82 Long term (current) use of aspirin; Z79.84 Long term (current) use of oral hypoglycemic drugs; Z79.899 Other long term (current) drug therapy
CPT/HCPCS: 30901; 99282